=== PATIENT | female | born 1970 | race Two or more races ===

== ENCOUNTER 2019-01-11 21:07 | Emergency (ER) | payer OTHER ==
[~2019-01-11] VITALS: Ht 157.5 cm; Wt 61.2 kg
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
--- NOTE | 2019-01-11 22:11 | NUR ---
PA AT BEDSIDE FOR EVAL
--- NOTE | 2019-01-11 22:14 | NUR ---
AMY TALKING WITH PATIENT AND FAMILY
[2019-01-11] MEDS ORDERED: KETOROLAC TROMETHAMINE INJ 30 MG/ML VIAL ONE (22:15)
--- NOTE | 2019-01-11 22:23 | NUR ---
URINE COLLECTED AND SENT TO LAB
--- NOTE | 2019-01-11 22:25 | NUR ---
TECH AT BEDSIDE FOR EKG
[2019-01-11] MEDS ORDERED: KETOROLAC TROMETHAMINE INJ 60 MG/2 ML VIAL IM ONE (22:30)
--- NOTE | 2019-01-12 00:52 | NUR ---
Patient discharged to home in stable condition. Written and verbal after care instructions given. Patient verbalizes understanding of instruction.
[2019-01-12 00:53] VITALS: BP 126/65
== END 2019-01-12 00:40 | disposition home or self-care (01) ==
LOC: ER 21:08
DX: S20.212A Contusion of left front wall of thorax, initial encounter (principal); M54.2 Cervicalgia; V49.49XA Driver injured in collision with other motor vehicles in traffic accident, initial encounter; Y93.89 Activity, other specified; Y92.413 State road as the place of occurrence of the external cause; Y99.8 Other external cause status
CPT/HCPCS: 71045; 72040; 84703; 93005; 96372; 99284; J1885